=== PATIENT | female | born 1980 | race Caucasian/White ===

== ENCOUNTER 2017-08-28 01:55 | Emergency (ER) | payer BC ==
[2017-08-28 02:57] VITALS: BP 110/75
--- NOTE | 2017-08-29 08:54 | ER ---
DATE SEEN: 08/28/2017 HISTORY OF PRESENT ILLNESS: Oxana has a ring on her left thumb. It has been there for 20+ years. She was wrestling and playing with her children (there is a holiday tomorrow, consequently, the children were up late). Approximately half an hour to an hour ago, with wrestling and playing, the kids caught her finger and caused a pressure laceration, pain, and moderate swelling. The pain has increased. The patient is otherwise healthy. ALLERGIES: Erythromycin. MEDICATIONS: 1. Hydroxyzine 50 q.6 hours. 2. Bupropion 150 mg b.i.d. 3. Fluoxetine 40 mg daily. REVIEW OF SYSTEMS: Negative, except for depression. PHYSICAL EXAMINATION: VITAL SIGNS: Blood pressure 113/85, heart rate 94, respirations 18, and oxygen saturation 99%. GENERAL: An alert woman, in moderate discomfort. MUSCULOSKELETAL: Left thumb has partial avulsion on the palmar surface. The laceration is approximately 1.5 cm long, superficial dermis, breaks the skin. There is trace of blood noted. Ring on any movement causes severe pain. EMERGENCY ROOM COURSE: A ring-remover saw was placed, and the ring was then cut. Once this was completed, it was removed. The wound was cleansed with surgical scrub brush. Then, bacitracin applied and bandage applied. PLAN: The patient will gradually increase her activity. Because she needs to type at [employer], she is excused from work today. Follow up with her doctor as needed in a week or earlier if worse. Elevate the hand above the heart. Use cool packs. DIAGNOSIS: Partial dermis avulsion with superficial laceration without infection, wound cleansed, and ring removed. /[id number] YULIYA/RENEE
== END 2017-08-28 02:55 | disposition home or self-care (01) ==
LOC: FB.ED 01:55
DX: S61.012A Laceration without foreign body of left thumb without damage to nail, initial encounter (principal); Z88.1 Allergy status to other antibiotic agents; X58.XXXA Exposure to other specified factors, initial encounter; Y93.72 Activity, wrestling
CPT/HCPCS: 99283

== ENCOUNTER 2023-05-22 00:52 | Emergency (ER) | payer BC, OTHER ==
[2023-05-22 01:01] VITALS: BP 116/69
[2023-05-22 01:13] VITALS: PULSE 95
== END 2023-05-22 01:25 | disposition left against medical advice (07) ==
LOC: FB.ED 00:52
DX: Z53.21 Procedure and treatment not carried out due to patient leaving prior to being seen by health care provider (principal)

== ENCOUNTER 2023-06-05 01:26 | Emergency (ER) | payer OTHER ==
[2023-06-05] MEDS ORDERED: Lidocaine 1% 20 ML MDV INFILT ONE (01:27)
[2023-06-05 02:31] VITALS: BP 125/61; PULSE 87
[2023-06-05] MEDS ORDERED: Diphtheria,Pertussis(Acell),Tetanus Vaccine 0.5 ML Syringe IM ONE (02:52)
== END 2023-06-05 03:11 | disposition home or self-care (01) ==
LOC: FB.ED 01:26
DX: S71.112A Laceration without foreign body, left thigh, initial encounter (principal); F17.210 Nicotine dependence, cigarettes, uncomplicated; Z23 Encounter for immunization; Z88.1 Allergy status to other antibiotic agents; W11.XXXA Fall on and from ladder, initial encounter
CPT/HCPCS: 12002; 90471; 90715; 99282-25